=== PATIENT | female | born 1965 | race Two or more races ===

== ENCOUNTER 2024-03-17 08:43 | Emergency (ER) | payer OTHER ==
[~2024-03-17] VITALS: Ht 170.2 cm; Wt 90.9 kg
[2024-03-17 08:59] VITALS: TEMP 98.2
[2024-03-17] MEDS ORDERED: LOSA-382 PO (09:02)
[2024-03-17] MEDS ORDERED: CITA-144 PO (09:02)
[2024-03-17] MEDS ORDERED: METO50 PO (09:02)
[2024-03-17] MEDS ORDERED: GABA-1201 PO (09:02)
[2024-03-17] MEDS ORDERED: GABA-1216 PO (09:02)
[2024-03-17] MEDS ORDERED: ROSU20TA98 PO (09:02)
[2024-03-17] MEDS ORDERED: DULO-113 PO (09:04)
[2024-03-17 09:07] LABS: COVID AG,FIA SOURCE NASAL SWAB
[2024-03-17 09:28] LABS: SARS-COV2 (COVID) ANTIGEN,FIA Negative (Negative)
[2024-03-17 09:29] LABS: INFLUENZA TYPE A NEGATIVE FOR TYPE A (NEGATIVE); INFLUENZA TYPE B NEGATIVE FOR TYPE B (NEGATIVE)
[2024-03-17] MEDS ORDERED: CIPR250T6 PO (09:45)
[2024-03-17] MEDS ORDERED: FLUT16SP NASAL (09:45)
[2024-03-17] MEDS ORDERED: ALBU18HF12 IH (09:45)
[2024-03-17] MEDS: CIPROFLOXACIN HCL 250 MG TABLET PO ONE (09:52)
[2024-03-17 10:38] VITALS: BP 128/73; PULSE 65; RESP 18; O2SAT 98
== END 2024-03-17 10:41 | disposition home or self-care (01) ==
LOC: EMS 08:43
DX: J32.8 Other chronic sinusitis (principal); F10.20 Alcohol dependence, uncomplicated; R09.81 Nasal congestion; I10 Essential (primary) hypertension; E78.00 Pure hypercholesterolemia, unspecified; Z88.0 Allergy status to penicillin; Z98.890 Other specified postprocedural states; Z79.899 Other long term (current) drug therapy; Z20.822 Contact with and (suspected) exposure to COVID-19; Y90.6 Blood alcohol level of 120-199 mg/100 ml
CPT/HCPCS: 87804; 99283